=== PATIENT | female | born 1985 | race Caucasian/White ===

== ENCOUNTER 2021-07-22 16:41 | Emergency (ER) | payer OTHER ==
[~2021-07-22] VITALS: Ht 172.7 cm; Wt 122.5 kg
[2021-07-22] MEDS ORDERED: XANAX XR1 MG PO (16:55)
[2021-07-22] MEDS ORDERED: ABILIFY10 MG PO (16:55)
[2021-07-22 17:36] LABS: ABSOLUTE BASOPHILS 0.1 thou/uL (0.0-0.2); ABSOLUTE EOSINOPHILS 0.2 thou/uL (0.0-0.7); ABSOLUTE LYMPHOCYTES 3.2 thou/uL (0.8-5.3); ABSOLUTE MONOCYTES 0.5 thou/uL (0.0-1.2); ABSOLUTE NEUTROPHILS 6.3 thou/uL (1.6-8.1); BASOPHILS 0.6 %; EOSINOPHILS 2.3 %; HEMATOCRIT 40.1 % (37.0-47.0); HEMOGLOBIN 13.6 gm/dL (12.0-15.0); LYMPHOCYTES 31.4 %; MCHC 33.8 g/dL (28.0-37.0); MCV 94.5 fL (80.0-100.0); MONOCYTES 4.5 %; MPV 8.3 fl. (7.2-11.1); NUCLEATED RBCS 0 /100WBC; PLATELET COUNT* 270 thou/uL (150-400); POLYS 61.2 %; RBC 4.24 mil/uL (4.20-5.00); RDW-CV 13.8 % (10.5-14.5); WBC 10.2 thou/uL (4.0-11.0)
[2021-07-22 17:46] LABS: CALCIUM 8.2 mg/dL (8.5-10.1); POTASSIUM 3.5 mmol/L (3.5-5.1)
[2021-07-22 17:51] LABS: ALBUMIN 3.2 g/dL (3.4-5.0); TOTAL BILIRUBIN 0.2 mg/dL (<0.1-1.0); TOTAL PROTEIN 6.7 g/dL (6.4-8.2)
[2021-07-22] MEDS ORDERED: APAP W/CODEINE1 TA2 PO (19:31)
[2021-07-22] MEDS ORDERED: ONDANSETRON ODT4 MG PO (19:31)
[2021-07-22] MEDS ORDERED: PROMS25 WY RECTAL (19:31)
[2021-07-22] MEDS ORDERED: CEPHALEXIN500 MG PO (19:32)
[2021-07-22 19:40] VITALS: BP 129/50
[2021-07-22 19:42] LABS: URINE BILIRUBIN NEGATIVE (Negative); URINE BLOOD NEGATIVE (Negative); URINE CLARITY CLEAR; URINE COLOR YELLOW; URINE GLUCOSE-RANDOM NEGATIVE (Negative); URINE KETONES NEGATIVE (Negative); URINE LEUKOCYTES-REFLEX NEGATIVE (Negative); URINE NITRITE-REFLEX NEGATIVE (Negative); URINE PROTEIN NEGATIVE (Negative); URINE SPECIFIC GRAVITY 1.025 (1.005-1.030); URINE UROBILINOGEN 0.2 E.U./dl (0.2-1.0)
== END 2021-07-22 19:41 | disposition home or self-care (01) ==
LOC: M.ERS 16:41
PROVIDERS: Physician Assistant
DX: R10.31 Right lower quadrant pain (principal); Z20.822 Contact with and (suspected) exposure to COVID-19; Z90.49 Acquired absence of other specified parts of digestive tract; Z79.899 Other long term (current) drug therapy; Z88.8 Allergy status to other drugs, medicaments and biological substances

== ENCOUNTER 2021-07-29 09:34 | Emergency (ER) | payer OTHER ==
[~2021-07-29] VITALS: Ht 172.7 cm; Wt 123.4 kg
[~2021-07-29 09:34] MED LIST: ABILIFY10 MG PO; APAP W/CODEINE1 TA2 PO; CEPHALEXIN500 MG PO; ONDANSETRON ODT4 MG PO; PROMS25 WY RECTAL; XANAX XR1 MG PO
[2021-07-29] MEDS ORDERED: APAP W/CODEINE1 TA2 PO (10:01)
[2021-07-29 11:55] LABS: HEMATOCRIT 42.3 % (37.0-47.0); HEMOGLOBIN 14.2 gm/dL (12.0-15.0); MCH 32.3 pg (26.0-34.0); MCHC 33.7 g/dL (28.0-37.0); MPV 8.7 fl. (7.2-11.1); RBC 4.41 mil/uL (4.20-5.00); RDW-CV 14.2 % (10.5-14.5); WBC 10.8 thou/uL (4.0-11.0)
[2021-07-29 12:07] LABS: CALCIUM 8.6 mg/dL (8.5-10.1); CREATININE 0.8 mg/dL (0.6-1.3); POTASSIUM 4.3 mmol/L (3.5-5.1)
[2021-07-29] MEDS ORDERED: MEDROLDOSEPACK PO (12:40)
[2021-07-29] MEDS ORDERED: FLEXERIL PO (12:40)
[2021-07-29 13:01] VITALS: BP 135/87
== END 2021-07-29 13:02 | disposition home or self-care (01) ==
LOC: M.ERS 09:34
PROVIDERS: Physician Assistant
DX: M79.604 Pain in right leg (principal); M79.89 Other specified soft tissue disorders; M54.50 Low back pain, unspecified; F31.9 Bipolar disorder, unspecified; Z90.49 Acquired absence of other specified parts of digestive tract; Z79.899 Other long term (current) drug therapy; Z88.8 Allergy status to other drugs, medicaments and biological substances

== ENCOUNTER 2021-08-01 18:32 | Emergency (ER) | payer OTHER ==
[~2021-08-01] VITALS: Ht 172.7 cm; Wt 123.4 kg
[~2021-08-01 18:32] MED LIST changes: +FLEXERIL PO; +MEDROLDOSEPACK PO
[2021-08-01 21:47] LABS: ABSOLUTE BASOPHILS 0.1 thou/uL (0.0-0.2); ABSOLUTE EOSINOPHILS 0.2 thou/uL (0.0-0.7); ABSOLUTE LYMPHOCYTES 3.3 thou/uL (0.8-5.3); ABSOLUTE MONOCYTES 0.5 thou/uL (0.0-1.2); ABSOLUTE NEUTROPHILS 7.9 thou/uL (1.6-8.1); BASOPHILS 0.6 %; EOSINOPHILS 1.9 %; HEMATOCRIT 41.4 % (37.0-47.0); HEMOGLOBIN 13.7 gm/dL (12.0-15.0); LYMPHOCYTES 27.5 %; MCH 31.7 pg (26.0-34.0); MCHC 33.2 g/dL (28.0-37.0); MCV 95.6 fL (80.0-100.0); MONOCYTES 4.4 %; MPV 8.3 fl. (7.2-11.1); NUCLEATED RBCS 0 /100WBC; PLATELET COUNT* 243 thou/uL (150-400); POLYS 65.6 %; RBC 4.33 mil/uL (4.20-5.00); RDW-CV 14.1 % (10.5-14.5)
[2021-08-01 22:00] LABS: CALCIUM 8.5 mg/dL (8.5-10.1); CREATININE 0.9 mg/dL (0.6-1.3); POTASSIUM 3.7 mmol/L (3.5-5.1)
[2021-08-01 22:01] LABS: ALBUMIN 3.3 g/dL (3.4-5.0); TOTAL BILIRUBIN 0.2 mg/dL (<0.1-1.0); TOTAL PROTEIN 7.1 g/dL (6.4-8.2)
[2021-08-01 22:05] LABS: URINE BILIRUBIN NEGATIVE (Negative); URINE BLOOD TRACE (Negative); URINE CLARITY CLEAR; URINE COLOR YELLOW; URINE GLUCOSE-RANDOM NEGATIVE (Negative); URINE KETONES NEGATIVE (Negative); URINE LEUKOCYTES NEGATIVE (Negative); URINE NITRITE NEGATIVE (Negative); URINE PROTEIN NEGATIVE (Negative); URINE SPECIFIC GRAVITY 1.025 (1.005-1.030); URINE UROBILINOGEN 0.2 E.U./dl (0.2-1.0)
[2021-08-01] MEDS ORDERED: ZOFRAN ODT4 MG PO (23:09)
[2021-08-01 23:31] VITALS: BP 119/61
== END 2021-08-01 23:31 | disposition home or self-care (01) ==
LOC: M.ERS 18:32
PROVIDERS: Physician Assistant
DX: R10.13 Epigastric pain (principal); F31.9 Bipolar disorder, unspecified; F17.210 Nicotine dependence, cigarettes, uncomplicated; Z90.49 Acquired absence of other specified parts of digestive tract; Z79.899 Other long term (current) drug therapy; Z88.8 Allergy status to other drugs, medicaments and biological substances

== ENCOUNTER 2021-08-05 17:54 | Emergency (ER) | payer OTHER ==
[~2021-08-05] VITALS: Ht 172.7 cm; Wt 123.4 kg
[~2021-08-05 17:54] MED LIST changes: +ZOFRAN ODT4 MG PO
[2021-08-05 19:52] LABS: ABSOLUTE BASOPHILS 0.1 thou/uL (0.0-0.2); BASOPHILS 0.8 %; HEMOGLOBIN 14.4 gm/dL (12.0-15.0); RDW-CV 13.7 % (10.5-14.5)
[2021-08-05 19:54] LABS: ABSOLUTE EOSINOPHILS 0.1 thou/uL (0.0-0.7); ABSOLUTE LYMPHOCYTES 1.8 thou/uL (0.8-5.3); ABSOLUTE MONOCYTES 0.5 thou/uL (0.0-1.2); EOSINOPHILS 1.5 %; HEMATOCRIT 42.2 % (37.0-47.0); MCH 32.2 pg (26.0-34.0); MCHC 34.2 g/dL (28.0-37.0); MCV 94.1 fL (80.0-100.0); MONOCYTES 6.3 %; MPV 8.6 fl. (7.2-11.1); NUCLEATED RBCS 0 /100WBC; PLATELET COUNT* 245 thou/uL (150-400); POLYS 70.4 %; RBC 4.48 mil/uL (4.20-5.00); WBC 8.5 thou/uL (4.0-11.0)
[2021-08-05 20:00] LABS: CREATININE 0.9 mg/dL (0.6-1.3); POTASSIUM 3.9 mmol/L (3.5-5.1)
[2021-08-05 20:12] LABS: ALBUMIN 3.5 g/dL (3.4-5.0); TOTAL BILIRUBIN 0.3 mg/dL (<0.1-1.0); TOTAL PROTEIN 7.4 g/dL (6.4-8.2)
[2021-08-05] MEDS ORDERED: MEDROLDOSEPACK PO (20:28)
[2021-08-05] MEDS ORDERED: VENTOLIN HFA 1818 GM INH (20:28)
[2021-08-05] MEDS ORDERED: HYDROCODON-ACE1 EAC8 PO (20:30)
[2021-08-05 20:36] LABS: INFLUENZA A ANTIGEN Negative (Negative); INFLUENZA B ANTIGEN Negative (Negative)
[2021-08-05 20:47] VITALS: BP 130/88
--- NOTE | 2021-08-06 10:08 | EKG ---
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
== END 2021-08-05 20:49 | disposition home or self-care (01) ==
LOC: M.ERS 17:54
PROVIDERS: Nurse Practitioner Family
DX: U07.1 COVID-19 (principal); M54.31 Sciatica, right side; F17.210 Nicotine dependence, cigarettes, uncomplicated; Z90.49 Acquired absence of other specified parts of digestive tract; Z88.8 Allergy status to other drugs, medicaments and biological substances

== ENCOUNTER 2021-08-12 12:18 | Emergency (ER) | payer OTHER ==
[~2021-08-12] VITALS: Ht 172.7 cm; Wt 123.4 kg
[~2021-08-12 12:18] MED LIST changes: +HYDROCODON-ACE1 EAC8 PO; +VENTOLIN HFA 1818 GM INH
[2021-08-12] MEDS ORDERED: NORFLEX100 MG PO (13:47)
[2021-08-12 14:02] VITALS: BP 134/70
== END 2021-08-12 14:03 | disposition home or self-care (01) ==
LOC: M.ERS 12:18
DX: U07.1 COVID-19 (principal); M25.561 Pain in right knee; M79.652 Pain in left thigh; M79.661 Pain in right lower leg; F31.9 Bipolar disorder, unspecified; F17.210 Nicotine dependence, cigarettes, uncomplicated; Z98.51 Tubal ligation status; Z90.49 Acquired absence of other specified parts of digestive tract; Z79.899 Other long term (current) drug therapy; Z88.8 Allergy status to other drugs, medicaments and biological substances

== ENCOUNTER 2021-08-19 19:45 | Emergency (ER) | payer OTHER ==
[~2021-08-19] VITALS: Ht 172.7 cm; Wt 123.4 kg
[~2021-08-19 19:45] MED LIST changes: +NORFLEX100 MG PO
[2021-08-19 20:06] LABS: URINE BILIRUBIN NEGATIVE (Negative); URINE BLOOD 1+ (Negative); URINE COLOR YELLOW; URINE GLUCOSE-RANDOM NEGATIVE (Negative); URINE KETONES NEGATIVE (Negative); URINE LEUKOCYTES-REFLEX NEGATIVE (Negative); URINE NITRITE-REFLEX NEGATIVE (Negative); URINE PROTEIN NEGATIVE (Negative); URINE SPECIFIC GRAVITY 1.025 (1.005-1.030); URINE UROBILINOGEN 0.2 E.U./dl (0.2-1.0)
[2021-08-19 20:09] LABS: SQUAMOUS 4-10 Moderate /LPF (0-3); URINE CLARITY HAZY; URINE WBC-REFLEX None Seen /HPF (0-5)
[2021-08-19 20:10] LABS: BACTERIA-REFLEX None Seen /HPF (None Seen); CASTS None Seen /LPF (None Seen); CRYSTALS None Seen /LPF (None Seen); URINE RBC 0-2 Rare /HPF (0-2)
[2021-08-19 20:57] LABS: HEMOGLOBIN 13.4 gm/dL (12.0-15.0); MCH 31.7 pg (26.0-34.0); MCHC 33.6 g/dL (28.0-37.0); MCV 94.5 fL (80.0-100.0); MPV 8.6 fl. (7.2-11.1); RBC 4.23 mil/uL (4.20-5.00); RDW-CV 13.4 % (10.5-14.5); WBC 9.1 thou/uL (4.0-11.0)
[2021-08-19 21:07] LABS: CALCIUM 8.7 mg/dL (8.5-10.1); CREATININE 1.1 mg/dL (0.6-1.3); POTASSIUM 3.7 mmol/L (3.5-5.1)
[2021-08-19 21:11] LABS: ALBUMIN 3.4 g/dL (3.4-5.0); TOTAL BILIRUBIN 0.2 mg/dL (<0.1-1.0)
[2021-08-19 21:48] LABS: AMP/METHAMP Negative (Negative); BARBITURATES Negative (Negative); BENZODIAZEPINES POSITIVE (Negative); COCAINE Negative (Negative); METHADONE Negative (Negative); OPIATES Negative (Negative); PCP Negative (Negative); THC POSITIVE (Negative)
[2021-08-19 22:42] VITALS: BP 131/87
--- NOTE | 2021-08-20 11:18 | EKG ---
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
== END 2021-08-19 22:42 | disposition home or self-care (01) ==
LOC: M.ERS 19:45
PROVIDERS: Personal Emergency Response Attendant
DX: R10.12 Left upper quadrant pain (principal); R50.9 Fever, unspecified; R19.7 Diarrhea, unspecified; M25.512 Pain in left shoulder; F31.9 Bipolar disorder, unspecified; F17.210 Nicotine dependence, cigarettes, uncomplicated; Z90.49 Acquired absence of other specified parts of digestive tract; Z90.721 Acquired absence of ovaries, unilateral; Z88.8 Allergy status to other drugs, medicaments and biological substances; Z79.899 Other long term (current) drug therapy

== ENCOUNTER 2021-08-28 10:00 | Emergency (ER) | payer OTHER ==
[~2021-08-28] VITALS: Ht 172.7 cm; Wt 122.5 kg
[2021-08-28] MEDS ORDERED: XANAX1 MG PO (10:41)
[2021-08-28 12:00] LABS: URINE BILIRUBIN NEGATIVE (Negative); URINE BLOOD NEGATIVE (Negative); URINE CLARITY CLEAR; URINE COLOR YELLOW; URINE GLUCOSE-RANDOM NEGATIVE (Negative); URINE KETONES NEGATIVE (Negative); URINE LEUKOCYTES-REFLEX NEGATIVE (Negative); URINE NITRITE-REFLEX NEGATIVE (Negative); URINE PROTEIN NEGATIVE (Negative); URINE UROBILINOGEN 0.2 E.U./dl (0.2-1.0)
[2021-08-28 12:03] LABS: ABSOLUTE EOSINOPHILS 0.2 thou/uL (0.0-0.7); ABSOLUTE LYMPHOCYTES 2.9 thou/uL (0.8-5.3); ABSOLUTE MONOCYTES 0.6 thou/uL (0.0-1.2); ABSOLUTE NEUTROPHILS 8.2 thou/uL (1.6-8.1); BASOPHILS 0.2 %; EOSINOPHILS 1.7 %; HEMATOCRIT 43.8 % (37.0-47.0); HEMOGLOBIN 14.7 gm/dL (12.0-15.0); LYMPHOCYTES 24.4 %; MCH 31.7 pg (26.0-34.0); MCHC 33.5 g/dL (28.0-37.0); MCV 94.7 fL (80.0-100.0); MONOCYTES 4.9 %; MPV 8.5 fl. (7.2-11.1); NUCLEATED RBCS 0 /100WBC; PLATELET COUNT* 282 thou/uL (150-400); POLYS 68.8 %; RBC 4.63 mil/uL (4.20-5.00); RDW-CV 13.3 % (10.5-14.5); WBC 11.9 thou/uL (4.0-11.0)
[2021-08-28 12:28] LABS: ALBUMIN 3.8 g/dL (3.4-5.0); CALCIUM 9.2 mg/dL (8.5-10.1); CREATININE 0.7 mg/dL (0.6-1.3); POTASSIUM 4.2 mmol/L (3.5-5.1); TOTAL BILIRUBIN 0.2 mg/dL (<0.1-1.0); TOTAL PROTEIN 7.3 g/dL (6.4-8.2)
[2021-08-28 12:51] LABS: INFLUENZA A ANTIGEN Negative (Negative); INFLUENZA B ANTIGEN Negative (Negative)
--- NOTE | 2021-08-28 13:28 | EKG ---
[place] [address] ELECTROCARDIOGRAM REPORT Name: MAL ALBRIGHT Room: [facility]#: [id number] Admission: 08/28/21 Attend Phys: Discharge: Date of : 85 Date of Service: 08/28/21 1231 Report #: [id number] THIS REPORT FOR: //name// [facility] ED Test Date: 2021-08-28 Test Time: 12:31:15 Pat Name: MAL ALBRIGHT Department: Room: Gender: Cotton Dispatcher: : 1985 Requested By: Amaris Salinas Order Number: [id number] MD: López Curtis Measurements Intervals [place] Rate: 106 P: 53 CT: 158 QRS: 74 QRSD: 88 T: 52 QT: 350 QTc: 465 Interpretive Statements Sinus tachycardia Compared to ECG 08/19/2021 20:20:49 No significant changes Electronically Signed On 08-28-2021 13:28:18 REAL ESTATE RENTAL AGENT by López Curtis [email or web address] <ELECTRONICALLY SIGNED> By: López Curtis MD, [facility] 08/28/21 1328 1231 1231 López Curtis MD, FAC /EPI
[2021-08-28] MEDS ORDERED: ZOFRAN ODT4 MG PO (14:20)
[2021-08-28] MEDS ORDERED: MEDROLDOSEPACK PO (14:20)
[2021-08-28] MEDS ORDERED: FLEXERIL PO (14:20)
[2021-08-28] MEDS ORDERED: HYDROCODON-ACE1 EAC7 PO (14:22)
[2021-08-28 14:49] VITALS: BP 100/66
== END 2021-08-28 14:50 | disposition home or self-care (01) ==
LOC: M.ERS 10:00
PROVIDERS: Nurse Practitioner Family
DX: J06.9 Acute upper respiratory infection, unspecified (principal); Z20.822 Contact with and (suspected) exposure to COVID-19; K52.9 Noninfective gastroenteritis and colitis, unspecified; R11.2 Nausea with vomiting, unspecified; M54.41 Lumbago with sciatica, right side; R10.9 Unspecified abdominal pain; R05.9 Cough, unspecified; R53.83 Other fatigue; F31.9 Bipolar disorder, unspecified; E66.9 Obesity, unspecified; F17.210 Nicotine dependence, cigarettes, uncomplicated; Z90.49 Acquired absence of other specified parts of digestive tract; Z90.721 Acquired absence of ovaries, unilateral; Z68.41 Body mass index [BMI] 40.0-44.9, adult; Z79.899 Other long term (current) drug therapy; Z88.8 Allergy status to other drugs, medicaments and biological substances

== ENCOUNTER 2021-09-04 19:06 | Emergency (ER) | payer OTHER ==
[~2021-09-04] VITALS: Ht 172.7 cm; Wt 122.5 kg
[~2021-09-04 19:06] MED LIST changes: +HYDROCODON-ACE1 EAC7 PO; +XANAX1 MG PO
[2021-09-04] MEDS ORDERED: ABILIFY 5 MG TAB5 MG PO (19:58)
[2021-09-04 20:40] LABS: ABSOLUTE BASOPHILS 0.1 thou/uL (0.0-0.2); ABSOLUTE EOSINOPHILS 0.3 thou/uL (0.0-0.7); ABSOLUTE LYMPHOCYTES 3.2 thou/uL (0.8-5.3); ABSOLUTE MONOCYTES 0.7 thou/uL (0.0-1.2); ABSOLUTE NEUTROPHILS 8.2 thou/uL (1.6-8.1); BASOPHILS 0.4 %; EOSINOPHILS 2.5 %; HEMATOCRIT 40.6 % (37.0-47.0); HEMOGLOBIN 13.5 gm/dL (12.0-15.0); LYMPHOCYTES 25.5 %; MCH 31.6 pg (26.0-34.0); MCHC 33.2 g/dL (28.0-37.0); MONOCYTES 5.6 %; MPV 8.5 fl. (7.2-11.1); NUCLEATED RBCS 0 /100WBC; PLATELET COUNT* 276 thou/uL (150-400); RBC 4.27 mil/uL (4.20-5.00); RDW-CV 13.7 % (10.5-14.5); WBC 12.4 thou/uL (4.0-11.0)
[2021-09-04 20:48] LABS: CALCIUM 9.2 mg/dL (8.5-10.1); CREATININE 0.8 mg/dL (0.6-1.3); POTASSIUM 3.8 mmol/L (3.5-5.1)
[2021-09-04 20:52] LABS: ALBUMIN 3.4 g/dL (3.4-5.0); TOTAL BILIRUBIN 0.2 mg/dL (<0.1-1.0)
[2021-09-04 22:17] VITALS: BP 102/58
--- NOTE | 2021-09-05 09:39 | EKG ---
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
== END 2021-09-04 22:17 | disposition home or self-care (01) ==
LOC: M.ERS 19:06
PROVIDERS: Student in an Organized Health Care Education/Training Program
DX: R06.02 Shortness of breath (principal); F17.210 Nicotine dependence, cigarettes, uncomplicated; Z90.49 Acquired absence of other specified parts of digestive tract; Z98.890 Other specified postprocedural states; Z79.899 Other long term (current) drug therapy; Z88.8 Allergy status to other drugs, medicaments and biological substances